=== PATIENT | female | born 1960 | race Caucasian/White ===

== ENCOUNTER 2018-06-16 13:13 | Outpatient (CLI) | payer MEDICARE ==
--- NOTE | 2018-06-16 16:06 | MMO ---
BILATERAL SCREENING MAMMOGRAM: Date: 06/16/18 HISTORY: 58-year-old female. Routine screening mammography. COMPARISON: 05/18/17, 04/15/16. TECHNIQUE: CC and MLO views of both breasts are submitted for interpretation. This patient's mammogram was reviewed with the assistance of computer-aided detection. FINDINGS: The breasts are composed of scattered fibroglandular tissue. Bilaterally, no suspicious dominant mass , architectural distortion, or suspicious calcifications. Bilateral benign-appearing calcifications. Stable biopsy clips in the left breast. IMPRESSION: BIRADS 2: Benign Finding(s) RECOMMENDATION: Annual mammogram. POS: RICHARD
== END 2018-06-16 13:14 | disposition home or self-care (01) ==
LOC: SCSMAMMO 13:13
PROVIDERS: ATTEND Family Medicine
DX: Z12.31 Encounter for screening mammogram for malignant neoplasm of breast (principal)
CPT/HCPCS: 77067

== ENCOUNTER 2018-10-27 08:51 | Outpatient (CLI) | payer MEDICARE ==
--- NOTE | 2018-10-27 10:43 | ULT ---
ULTRASOUND ABDOMEN AORTA: Date: 10/27/18 HISTORY: Abdominal aortic aneurysm screen. Known aortic aneurysm. COMPARISON: None. FINDINGS: Proximal aorta measures 1.9 x 1.8 x 1.6 cm. Mid aorta measures 3.0 x 3.2 x 3.1 cm, abnormally dilated. Distal aorta measures 1.9 x 1.2 x 1.5 cm. IMPRESSION: Aortic aneurysm of the mid abdominal aorta measuring up to 3.2 cm. POS: [facility]
== END 2018-10-27 08:52 | disposition home or self-care (01) ==
LOC: SCSULT 08:51
PROVIDERS: ATTEND Family Medicine
DX: I71.4 Abdominal aortic aneurysm, without rupture (principal)
CPT/HCPCS: 76775

== ENCOUNTER 2018-12-19 12:32 | Outpatient (CLI) | payer MEDICARE ==
--- NOTE | 2018-12-19 12:59 | RAD ---
FXR Elbow Lt 2 View: 12/19/2018 12:00 AM CLINICAL INDICATION: Left elbow pain COMPARISON: None. FINDINGS: Fracture:No fracture. Arthropathy:None of significance. Incidental findings:None of significance. IMPRESSION: 1. No acute osseous abnormality.
--- NOTE | 2018-12-19 13:01 | RAD ---
FXR Lumbar Spine 2 Or 3 View: 12/19/2018 12:00 AM CLINICAL INDICATION: Right lumbar radiculopathy COMPARISON: None. FINDINGS: Fracture:No fracture. Arthropathy:Multilevel mild endplate degenerative changes, and multilevel degenerative facet sclerosi s Incidental findings:Vascular calcification. Metallic clips at right upper abdomen. IMPRESSION: 1. No acute osseous abnormality. 2. Mild degenerative change of lumbar spine.
== END 2018-12-19 12:33 | disposition home or self-care (01) ==
LOC: SCSRAD 12:32
PROVIDERS: ATTEND Family Medicine
DX: M47.26 Other spondylosis with radiculopathy, lumbar region (principal); M25.522 Pain in left elbow
CPT/HCPCS: 72100

== ENCOUNTER 2019-02-27 15:48 | Outpatient (CLI) | payer MEDICARE ==
--- NOTE | 2019-02-27 16:17 | RAD ---
Exam: XR Hip Rt 2-3 View HISTORY: Bilateral hip pain for 3 months. No known injury. COMPARISON: None FINDINGS: Minimal osteoarthritis involves the right hip. No acute fracture, dislocation, or other acute osseous abnormality is identified. Vascular calcifications overlie the expected location of the iliac arteries. IMPRESSION: No acute osseous abnormality is identified.
--- NOTE | 2019-02-27 16:19 | RAD ---
Exam: XR Hip Lt 2-3 View HISTORY: Bilateral hip pain for 3 months. No known injury. COMPARISON: None FINDINGS: Minimal osteoarthritis involves the left hip. No acute fracture, dislocation, or other acute osseous abnormality is identified. IMPRESSION: No acute osseous abnormality is identified.
== END 2019-02-27 15:49 | disposition home or self-care (01) ==
LOC: SCSRAD 15:48
PROVIDERS: ATTEND Family Medicine
DX: M25.551 Pain in right hip (principal); M25.552 Pain in left hip

== ENCOUNTER 2019-10-28 14:07 | Observation (INO) | payer MEDICARE ==
[2019-10-28] MEDS ORDERED: Metoprolol Tartrate 5 MG/5 ML VIAL ONE (14:40)
--- NOTE | 2019-10-28 14:43 | RAD ---
Portable frontal chest radiograph: 10/28/2019 COMPARISON: None HISTORY: Tachycardia FINDINGS: Mild increased linear interstitial density with pulmonary hyperinflation. No pneumothorax o r pleural fluid. No focal consolidation or alveolar edema. IMPRESSION: No acute findings.
[2019-10-28 14:47] LABS: Hemoglobin 14.7 g/dL (12.0-16.0); Mean Corpuscular HGB CONC 34.5 g/dL (32.0-36.0); Mean Corpuscular Hemoglobin 29.8 pg (27.0-31.0); Mean Corpuscular Volume 86.3 fL (78.0-98.0); Mean Platelet Volume 8.5 fL (7.4-10.4); Platelet Count 217 thou/uL (130-400); RBC Distribution Width 13.4 % (11.5-14.5); Red Blood Cell (RBC) Count 4.92 mill/uL (4.20-5.40); White Blood Cell (WBC) Count 10.6 thou/uL (4.8-10.8)
[2019-10-28 15:03] LABS: Lymphocytes 56 % (21-51); MDiff Complete? YES; Monocytes 4 % (0-10); Neutrophil 39 % (42-75); Platelet Morphology Comment Appears Adequate; RBC Morphology Normal
[2019-10-28 15:11] LABS: ALT (SGPT) 65 U/L (8-55); AST (SGOT) 63 U/L (5-34); Albumin 4.2 g/dL (3.5-5.0); Alkaline Phosphatase 100 U/L (40-110); Anion Gap 18 mmol/L (10-20); BUN (Urea Nitrogen) 15 mg/dL (9.8-20.1); Bilirubin, Total 0.3 mg/dL (0.2-1.2); Calc. Creatinine Clearance 0 mL/min (70-130); Calcium 9.6 mg/dL (7.8-10.44); Carbon Dioxide 22 mmol/L (22-29); Chloride 102 mmol/L (98-107); Estimated GFR-MDRD 57; Globulin 3.8 g/dL (2.4-3.5); Glucose 299 mg/dL (70-105); Lipase 25 U/L (8-78); Magnesium 1.5 mg/dL (1.6-2.6); Potassium 4.1 mmol/L (3.5-5.1); Sodium 138 mmol/L (136-145)
[2019-10-28] MEDS ORDERED: Magnesium 2 GM/50 ML BAG (IN WATER) ONE (15:32)
[2019-10-28 17:51] LABS: Troponin I 0.023 ng/mL (< 0.028)
--- NOTE | 2019-10-28 18:19 | PDOC.HHP ---
Hospitalist HPI - History of Present Illness palpitations History of Present Illness: This is a 59 year old female with past medical history of hypertension, Graves disease s/p radioactive ablation with current hypothyroidism who presented with palpitations. The patient states that she was sitting down when she felt a fluttering sensation in her chest around 10:00 am. She looked at her fit-bit and her heart rate was in the 150's. When she walked she noticed that her heart rate was getting faster. The pounding radiated to her neck and she felt that she was going to pass out but she didn't. She states her palpitations didn't resolve until she came to the ER and got IV metoprolol. She denied chest pain, diaphoresis or left arm pain but states that she felt that her lungs were over- filling with air. She denied any flu-like symptoms, nausea, vomiting, constipation or diarrhea. The patient drinks 2-4 cups of caffeine daily . The patient states she was previously on metoprolol with Dr. Kerr but it was discontinued due to the patient having pauses while sleeping. The patient has a history of sleep apnea, but does not wear the CPAP because she doesn't like it. She also had an ECHO done last that showed grade 1 diastolic dysfunction and mild to moderate aortic regurgitation. She also had a stress test done which was unremarkable. The patient states this was done to evaluate intermittent fluttering sensations in her neck that would spontaneously resolve. The patient states when she was on metoprolol previously she continued to have fluttering and she doesn't feel it really helped. Patient states her mother had issues with arrhythmia and had EP evaluation done. ED Course: When she arrived, her BP was 142/95 and heart rate 132. She was noted to have a low magnesium of 1.5. D-dimer was normal. EKG showed sinus tachycardia. Chest X ray showed no acute findings. She received IV magnesium sulfate and lopressor with improvement in her heart rate to 105. Hospitalist ROS - Review of Systems Constitutional: denies: fever, chills Respiratory: denies: cough, dry, shortness of breath Cardiovascular: reports: chest pain, palpitations Hospitalist History - Past Medical History Cardiac: reports: HTN Pulmonary: reports: COPD Endocrine: reports: Diabetes, Hypothyroidism Other Medical History: DOMINIC Abdominal Aortic aneurysm Bipolar type II - Past Surgical History Past Surgical History: reports: Cholecystectomy, Hysterectomy, Tonsillectomy Other Surgical History: Rhinoplasty Hiatal hernia wrap - Family History Other Family History: hypertension and diabetes in mom diabetes sister - Social History Smoking Status: Former smoker (Smoke 1-1.5 packs a day since the age of 16. Quit one year ago) Alcohol: reports: Rare (drinks once a year) Drugs: reports: none Living Situation: With Family (lives with daughter) Occupation: Retired. Former administrative specialist - Exam General Appearance: NAD, awake alert Eye: anicteric sclera ENT: normocephalic atraumatic, no oropharyngeal lesions Neck: supple, no JVD, no thyromegaly Heart: no murmur, no gallops, no rubs Heart - other findings: sinus tachycardia Respiratory: CTAB, no wheezes, no rales, no ronchi Gastrointestinal: soft, non-tender, non-distended Extremities: no cyanosis, no clubbing, no edema Skin: normal turgor, no lesions, no rashes Neurological: cranial nerve grossly intact, normal sensation to touch, no focal deficits, no new deficit Musculoskeletal: normal tone, normal strength, no muscle wasting Psychiatric: normal affect, normal behavior, A&O x 3, oriented to person Hospitalist Results - Labs Result Diagrams: 10/28/19 14:16 10/28/19 14:16 Lab results: WBC 10.6 thou/uL (4.8-10.8) 10/28/19 14:16 Hgb 14.7 g/dL (12.0-16.0) 10/28/19 14:16 Hct 42.5 % (36.0-47.0) 10/28/19 14:16 MCV 86.3 fL (78.0-98.0) 10/28/19 14:16 Plt Count 217 thou/uL (130-400) 10/28/19 14:16 Sodium 138 mmol/L (136-145) 10/28/19 14:16 Potassium 4.1 mmol/L (3.5-5.1) 10/28/19 14:16 Chloride 102 mmol/L (98-107) 10/28/19 14:16 Carbon Dioxide 22 mmol/L (22-29) 10/28/19 14:16 BUN 15 mg/dL (9.8-20.1) 10/28/19 14:16 Creatinine 0.99 mg/dL (0.6-1.1) 10/28/19 14:16 Glucose 299 mg/dL (70-105) H 10/28/19 14:16 Calcium 9.6 mg/dL (7.8-10.44) 10/28/19 14:16 Total Bilirubin 0.3 mg/dL (0.2-1.2) 10/28/19 14:16 AST 63 U/L (5-34) H 10/28/19 14:16 ALT 65 U/L (8-55) H 10/28/19 14:16 Alkaline Phosphatase 100 U/L (40-110) 10/28/19 14:16 Troponin I 0.023 ng/mL (< 0.028) 10/28/19 17:17 Serum Total Protein 8.0 g/dL (6.0-8.3) 10/28/19 14:16 Albumin 4.2 g/dL (3.5-5.0) 10/28/19 14:16 Lipase 25 U/L (8-78) 10/28/19 14:16 - EKG Interpretation EKG: RBBB, poor R wave progression Hospitalist H&P A/P - Plan Plan: Chest X ray: no acute findings EKG: RBBB and right axis deviation, nonspecific St change This is a 59 year old female with past medical history of GERD, bipolar, hypothyroidism, hypertension, diabetes who presented with palpitations Sinus tachycardia - rule out SVT vs ventricular abnormality - could be from underlying arrhythmia vs discontinuation of metoprolol vs DOMINIC vs electrolyte abnormality - troponin first two were negative, third slightly positive. Will repeat in am. - cardiology consulted, will resume metoprolol - TSH unremarkable - s/p 2 grams of magnesium, will recheck tomorrow - may need EP evaluation Hypomagnesemia - given 1.5 mg, s/p2 gram of mag Transaminitis - AST 63, ALT 65 - will trend, no abdominal pain currently DOMINIC - patient to wear CPAP at night Type II diabetes - fingersticks achs. Hold glipizide for now Diet: heart healthy, diabetic Code status: full code
[2019-10-28] MEDS ORDERED: Acetaminophen 325 MG TAB PO PRN (18:52)
[2019-10-28 19:19] VITALS: BMI 23.8
--- NOTE | 2019-10-28 20:40 | CON ---
DATE OF CONSULTATION: 10/28/2019 REASON FOR CONSULTATION: Tachycardia. HISTORY OF PRESENT ILLNESS: Ms. Calix is a pleasant 59-year-old white female who comes to the hospital for tachycardia. She is well known to myself. I saw her in the office just 2 days ago; at which point, we were reviewing her results. She had an echo that was unremarkable, normal EF, grade 1 diastolic dysfunction, and [id number] aortic insufficiency. Her stress test was normal. Her Power EfficiencyO monitor showed no tachyarrhythmias. There were 2 episodes of sinus pauses, longest one was 2.4 seconds and these correlated with episodes of her dozing off to sleep and waking up from feeling of having to take a breath and snoring loudly. We at that point thought that it was put into stop her metoprolol, which was only at 25 mg twice a day, which she had been on for her history of thyroid disease. She had thyrotoxicosis and she has tachycardia. She was placed on metoprolol long time ago and since she has been hypothyroid and is on replacement therapy, and we took her off the beta megan at that time. Her heart rate was 82 in the office. She called today to our call line, and she told me that she suddenly felt palpitations. Her heart rate, she checked it with her Fitbit and it was at 146. When I spoke with her, this should not be the case we just stopping such a low-dose beta-megan, so I asked her to come in for evaluation. In the ER, she was found to have a heart rate of 146. It was unclear whether this was just sinus tach or an SVT. She was given IV adenosine, and she did not really slow down. She did have one episode of slowing down and then she came back up to about 110, and a repeat EKG was done that showed similar findings as the first and possibly sinus tachycardia, cannot rule out an atrial tach. She does have new onset right bundle-branch block. On my evaluation, Mrs. Calix feels well. Denies any chest pain, tightness, or pressure. No shortness of breath. She does not feel tachycardia at all, but her heart rate remains in the 105 to 110 range. PAST MEDICAL HISTORY: 1. Type 2 diabetes. 2. Hyperlipidemia. 3. Hypertension. 4. Hypothyroidism. 5. COPD. 6. Mild cognitive impairment. 7. Graves disease. 8. Anxiety and panic disorder. 9. History of renal failure. PAST SURGICAL HISTORY: 1. Nondisplaced fracture of left toe. 2. AAA repair without rupture. 3. Hysterectomy. FAMILY HISTORY: Mother with diabetes, hypertension, and malignancy. SOCIAL HISTORY: Former smoker. Only drinks coffee and soda. No tobacco. Social alcohol use. No drug use. OUTPATIENT MEDICATIONS: Include: 1. Pantoprazole 40 mg a day. 2. Quetiapine 300 mg daily. 3. Gabapentin 300 mg twice a day. 4. Metoprolol was just stopped 2 days ago. 5. Singulair 10 mg once a day. 6. Donepezil 10 mg once a day. 7. Calcium. 8. Vitamin B12. 9. Multivitamin. 10. Vitamin D3. 11. Vitamin C. 12. Atrovent inhaler. 13. ProAir. 14. Atorvastatin 40 mg a day. 15. BuSpar 10 mg twice a day. 16. Bromide-3. 17. Oxybutynin chloride. 18. Glipizide 10 mg a day. 19. Levothyroxine 175 mcg a day. 20. Januvia 100 mg a day. ALLERGIES: NO KNOWN DRUG ALLERGIES. REVIEW OF SYSTEMS: A 12-point review of systems was done and was all negative unless stated in the History of Present Illness, includes some chest fluttering and snoring. PHYSICAL EXAMINATION: VITAL SIGNS: Temperature 98.5, pulse 105, respiratory rate 20, saturation is 95% on room air, and blood pressure 162/68. GENERAL: Awake, alert, oriented x3, in no distress. HEENT: Normocephalic and atraumatic. NECK: Supple. No JVD. LUNGS: Clear. CARDIOVASCULAR: S1 and S2. No S3 or S4. Tachycardic in the low 100s. There is a grade 2/6 systolic murmur at the right upper sternal border. ABDOMEN: Soft. Positive bowel sounds. EXTREMITIES: No edema. SKIN: Warm and dry. LABORATORY DATA: Laboratory work was reviewed. Electrolytes are normal. Glucose was 299. Magnesium was 1.5. It was replaced in the ER. AST is 63, ALT is 65, which are normal. Troponin was negative x2. Albumin of 4.2. Lipase was normal. TSH was normal at 3.8, but on the high side. IMAGING STUDIES: EKG was reviewed, heart rate 146 with what appears to be sinus tach, cannot rule out atrial tachycardia. Repeat EKG with lower heart rate shows sinus tachycardia at a heart rate of 102. There is QT corrected at 526. Chest x-ray was unremarkable. ASSESSMENT: 1. Tachycardia. 2. Prolonged QT. PLAN: 1. We will plan on restarting the metoprolol now. We will give her first dose now. We will see if this slows her down, maybe this is just her getting a little bit anxious from being off this medication. 2. We will recheck a TSH in the morning with a free T3 and a free T4 to make sure this is not a recurrence of her Graves disease. 3. Continue telemetry monitoring overnight. 4. If she is doing well tomorrow and her heart rate is back down to normal, she may be discharged to home. If she is still in the low one 100s, we may have to keep her until Wednesday to have EP evaluate her. Thank you for letting us to participate in the care of your patient. We will follow. Job ID: [id number]
[2019-10-28 20:49] LABS: Troponin I 0.035 ng/mL (< 0.028)
[2019-10-28] MEDS ORDERED: Atorvastatin Calcium 40 MG TAB PO SCH (21:00)
[2019-10-28] MEDS ORDERED: HumaLOG 300 UNITS/3 ML VIAL SC PRN (21:06)
[2019-10-28] MEDS ORDERED: PROVENTIL INHALER 6.7 G (200 INHALATIONS) INH PRN (21:06)
[2019-10-28] MEDS ORDERED: Dextrose 5% in Water 1,000 ML IV PRN (21:06)
[2019-10-28] MEDS ORDERED: Dextrose 50% Abboject 50 ML SYRINGE SLOW IVP PRN (21:06)
[2019-10-28] MEDS ORDERED: Exenatide Microspheres [Bydureon Pen] 2 MG SC SCH (21:15)
[2019-10-28] MEDS ORDERED: Metoprolol Tartrate 25 MG TAB PO SCH (21:15)
[2019-10-29 04:29] LABS: Hemoglobin 13.8 g/dL (12.0-16.0); Mean Corpuscular HGB CONC 33.8 g/dL (32.0-36.0); Mean Corpuscular Hemoglobin 29.5 pg (27.0-31.0); Mean Corpuscular Volume 87.1 fL (78.0-98.0); Mean Platelet Volume 8.1 fL (7.4-10.4); Platelet Count 207 thou/uL (130-400); RBC Distribution Width 13.4 % (11.5-14.5); Red Blood Cell (RBC) Count 4.67 mill/uL (4.20-5.40); White Blood Cell (WBC) Count 9.7 thou/uL (4.8-10.8)
[2019-10-29 04:57] LABS: ALT (SGPT) 51 U/L (8-55); AST (SGOT) 48 U/L (5-34); Albumin 3.8 g/dL (3.5-5.0); Alkaline Phosphatase 81 U/L (40-110); Anion Gap 13 mmol/L (10-20); BUN (Urea Nitrogen) 14 mg/dL (9.8-20.1); Bilirubin, Total 0.3 mg/dL (0.2-1.2); Calc. Creatinine Clearance 75 mL/min (70-130); Calcium 9.6 mg/dL (7.8-10.44); Carbon Dioxide 27 mmol/L (22-29); Chloride 103 mmol/L (98-107); Estimated GFR-MDRD 64; Globulin 3.3 g/dL (2.4-3.5); Glucose 210 mg/dL (70-105); Potassium 4.6 mmol/L (3.5-5.1); Protein, Total 7.1 g/dL (6.0-8.3); Sodium 138 mmol/L (136-145)
[2019-10-29 05:14] LABS: Free T4 (Free Thyroxine) 0.91 ng/dL (0.70-1.48); Thyroid Stimulating Hormone 3.2689 uIU/mL (0.35-4.94)
[2019-10-29] MEDS ORDERED: Levothyroxine 175 MCG TAB PO SCH (06:00)
[2019-10-29] MEDS: Ipratropium Oral Inhaler INH SCH ×2 (06:23→10:37)
[2019-10-29 08:27] VITALS: BP 106/66; TEMP 98.1
[2019-10-29] MEDS ORDERED: busPIRone HCl 10 MG TAB PO SCH (09:00)
[2019-10-29] MEDS ORDERED: Gabapentin 300 MG CAP PO SCH (09:00)
[2019-10-29] MEDS ORDERED: Donepezil HCl 10 MG TAB PO SCH (09:00)
[2019-10-29] MEDS ORDERED: Ezetimibe 10 MG TAB PO SCH (09:00)
[2019-10-29] MEDS ORDERED: Montelukast Sodium 10 mg Tablet PO SCH (09:00)
[2019-10-29] MEDS ORDERED: Fish Oil 1,000 MG CAP PO SCH (09:00)
[2019-10-29] MEDS ORDERED: Oxybutynin ER 5 MG TAB PO SCH (09:00)
[2019-10-29] MEDS ORDERED: INSULIN DEGLUDEC 120 UNIT SC SCH (21:00)
[2019-10-29] MEDS ORDERED: Insulin Glargine 120 UNITS in Pre-Filled Syringe 1 EACH SC SCH (21:00)
--- NOTE | 2019-10-30 08:45 | DIS ---
DATE OF ADMISSION: 10/28/2019 DATE OF DISCHARGE: 10/29/2019 PRIMARY CARE PROVIDER: Liz Broderick MD DISCHARGE DISPOSITION: To home. FINAL DIAGNOSES: Tachycardia, diabetes mellitus type 2, hypertension, dyslipidemia, and hypothyroidism. DISCHARGE MEDICATIONS: 1. Metoprolol 25 mg p.o. b.i.d. 2. Ditropan XL 10 mg a day. 3. Protonix 40 mg a day. 4. Januvia 100 mg a day. 5. Seroquel 300 mg p.o. at bedtime. 6. BuSpar 10 mg twice a day. 7. Levothyroxine 175 mcg a day. 8. Montelukast 10 mg a day. 9. Gabapentin 300 mg twice a day. 10. Bydureon Pen 2 mg subcu q.7 days. 11. Zetia 10 mg a day. 12. Donepezil 10 mg a day. 13. Lipitor 40 mg a day. 14. Insulin degludec 120 units subcu at bedtime. 15. Albuterol 2 puffs q.4 hours p.r.n. 16. Glipizide 20 mg a day. 17. Atrovent 2 puffs inhaled 4 times a day. 18. [place] 3 acid ethyl esters 2 g b.i.d. ALLERGIES: AMITRIPTYLINE, ATENOLOL, BUPROPION, INVOKANA, NICOTINE. DIET: Diabetic. PENDING AT TIME OF DISCHARGE: Nothing. CODE STATUS: Full. CONSULTATIONS: Dr. Joshua Kerr, Cardiology. PROCEDURES: None. HOSPITAL COURSE: The patient admitted to the Hospitalist Service through [facility] with tachycardia. The patient's initial EKG reveals sinus tach at 140. Her laboratory and CBC unremarkable except for neutrophils 39, lymphocytes 56. D-dimer 0.42. Comprehensive metabolic profile, blood sugar 299, magnesium 1.5. She received IV magnesium. She did have some minor elevations of AST and ALT 63 and 65. Cardiac enzymes; troponin 0.018, 0.023, and 0.035. The patient was given a low dose of metoprolol. Her rhythm returned to sinus 80+/-, free T4 was normal, free T3 was normal. TSH was normal. She is being discharged for followup by her PCP in [address] Kerr's recommendations with himself. Vital signs stable. Cardiovascular exam unremarkable except for a mild systolic murmur. Job ID: [id number]
== END 2019-10-29 11:48 | disposition home or self-care (01) ==
LOC: ERS 14:07 → 2SW 17:14
PROVIDERS: ADMIT Internal Medicine; ATTEND Internal Medicine
DX: R00.0 Tachycardia, unspecified (principal); E11.9 Type 2 diabetes mellitus without complications; I10 Essential (primary) hypertension; E78.5 Hyperlipidemia, unspecified; E03.9 Hypothyroidism, unspecified; I45.81 Long QT syndrome; J44.9 Chronic obstructive pulmonary disease, unspecified; G47.33 Obstructive sleep apnea (adult) (pediatric); E83.42 Hypomagnesemia; G31.84 Mild cognitive impairment of uncertain or unknown etiology; R74.0 Nonspecific elevation of levels of transaminase and lactic acid dehydrogenase [LDH]; F31.81 Bipolar II disorder; F41.0 Panic disorder [episodic paroxysmal anxiety]; Z79.4 Long term (current) use of insulin; Z79.899 Other long term (current) drug therapy; Z87.891 Personal history of nicotine dependence; Z88.8 Allergy status to other drugs, medicaments and biological substances; Z90.49 Acquired absence of other specified parts of digestive tract
CPT/HCPCS: 36415; 36416; 71045; 80053; 83690; 83735; 84439; 84443; 84481; 84484; 85025; 85027; 85379; 93005; 94664; 96365; 96375; G0378; J3475

== ENCOUNTER 2019-11-14 19:30 | Outpatient (CLI) | payer MEDICARE | END 2019-11-14 19:31 | disposition home or self-care (01) | LOC: SLEEPLAB 19:30 | PROVIDERS: ATTEND Family Medicine | DX: G47.33 Obstructive sleep apnea (adult) (pediatric) (principal); K21.9 Gastro-esophageal reflux disease without esophagitis; J44.9 Chronic obstructive pulmonary disease, unspecified; I10 Essential (primary) hypertension; E11.9 Type 2 diabetes mellitus without complications | CPT/HCPCS: 95811 ==

== ENCOUNTER 2019-11-24 06:12 | Day surgery (SDC) | payer MEDICARE ==
[2019-11-23 10:31] VITALS: BMI 23.7
[2019-11-24] MEDS ORDERED: Lidocaine 1% PF 5 ML VIAL ONE (09:41)
[2019-11-24] MEDS ORDERED: PROPOFOL 200 MG/20 ML VIAL ONE (09:41)
--- NOTE | 2019-11-24 09:43 | OP ---
DATE OF PROCEDURE: 11/24/2019 FLEET OPERATIONS MANAGER SURGEON: None. PROCEDURE PERFORMED: Surveillance colonoscopy with snare polypectomy. INDICATION: 1. Personal history of colon polyps. 2. Family history of colon cancer (paternal grandmother). MEDICATIONS: See Anesthesia record. FINDINGS: After discussion of the risks, benefits, and alternatives of the procedure, informed consent was obtained and witnessed. Pre-endoscopic cardiopulmonary examination was satisfactory. Time-out was performed before sedation was achieved. Sedation was achieved with Anesthesia assistance in the endoscopy unit. A digital rectal exam was performed, which was unremarkable. A Pentax adult colonoscope was inserted into the anus and passed forward to the cecum in the usual fashion. The cecal base was identified by the appendiceal orifice as well as the ileocecal valve. The terminal ileum was intubated and the ileal mucosa appeared normal. The colonoscope was slowly withdrawn in a gradual and circumferential manner with careful examination of the entire colonic mucosa. The quality of the prep was good. In the ascending colon, there was a sessile polyp measuring about 5 mm in diameter. This was completely removed with cold snare and retrieved for pathology. In the rectum, there were 2 polyps, both measuring 3 to 4 mm in diameter. These were both completely removed with cold snare and retrieved for pathology. Retroflexion in the rectum was unremarkable. The colonoscope was completely withdrawn and the patient allowed to recover. The patient tolerated the procedure well. There were no immediate postprocedure complications. IMPRESSION: 1. Single 5-mm sessile polyp in the ascending colon, completely removed with cold snare and retrieved for pathology. 2. Two sessile rectal polyps, both measuring about 3 mm, both completely removed with cold snare and retrieved for pathology. 3. Tortuous colon. 4. Otherwise normal colonoscopy to the terminal ileum. RECOMMENDATIONS: 1. Follow up pathology results on the polyps. 2. Repeat colonoscopy interval to be determined based on pathology results. Job ID: [id number]
== END 2019-11-24 09:55 | disposition home or self-care (01) ==
LOC: SDC 06:12
PROVIDERS: ATTEND Internal Medicine
PROC: 0DBM8ZZ Excision of Descending Colon, Via Natural or Artificial Opening Endoscopic (ICD-10-PCS; principal; 2019-11-24)
PROC: 0DBP8ZZ Excision of Rectum, Via Natural or Artificial Opening Endoscopic (ICD-10-PCS; 2019-11-24)
DX: Z12.11 Encounter for screening for malignant neoplasm of colon (principal); D12.8 Benign neoplasm of rectum; K63.5 Polyp of colon; K63.89 Other specified diseases of intestine; F41.9 Anxiety disorder, unspecified; F31.9 Bipolar disorder, unspecified; J44.9 Chronic obstructive pulmonary disease, unspecified; K76.0 Fatty (change of) liver, not elsewhere classified; K21.9 Gastro-esophageal reflux disease without esophagitis; K44.9 Diaphragmatic hernia without obstruction or gangrene; E78.5 Hyperlipidemia, unspecified; E03.9 Hypothyroidism, unspecified; G47.30 Sleep apnea, unspecified; E11.9 Type 2 diabetes mellitus without complications; Z90.710 Acquired absence of both cervix and uterus; Z98.890 Other specified postprocedural states; Z79.899 Other long term (current) drug therapy; F17.200 Nicotine dependence, unspecified, uncomplicated; Z86.010 Personal history of colon polyps; Z80.0 Family history of malignant neoplasm of digestive organs; Z83.71 Family history of colonic polyps; Z79.84 Long term (current) use of oral hypoglycemic drugs; Z88.8 Allergy status to other drugs, medicaments and biological substances; Z90.89 Acquired absence of other organs; Z85.3 Personal history of malignant neoplasm of breast; Z90.49 Acquired absence of other specified parts of digestive tract
CPT/HCPCS: 36416; 88305; J2001; J2704

== ENCOUNTER 2020-08-07 09:47 | Outpatient (CLI) | payer MEDICARE ==
--- NOTE | 2020-08-07 10:28 | CT ---
EXAM: CT Pulmonary Lung Scan PROVIDED CLINICAL HISTORY: Personal history of nicotine dependence, lung screening COMPARISON: None FINDINGS: The heart, pericardium and great vessels are suboptimally evaluated in the absence of IV contrast mat erial. Trace pericardial fluid. Minimal vascular calcification, including coronary calcium. Prominent by number but not pathologically enlarged mediastinal lymph nodes. The airway appears patent and of normal caliber. Pleural-parenchymal scarring changes are seen at both lung apices. No concerning pulmonary nodule is evident. No pleural fluid or pneumothorax apparent. The visualized portions of the upper abdomen demonstrate no significant abnormality. The osseous structures demonstrate no concerning lytic or blastic lesions. IMPRESSION: 1. Lung RADS category 1-negative. Continue annual screening. 2. Vascular calcification including coronary calcium.
== END 2020-08-07 09:48 | disposition home or self-care (01) ==
LOC: BICCT 09:47
PROVIDERS: ATTEND Family Medicine
DX: Z12.2 Encounter for screening for malignant neoplasm of respiratory organs (principal); Z87.891 Personal history of nicotine dependence; I25.10 Atherosclerotic heart disease of native coronary artery without angina pectoris
CPT/HCPCS: G0297

== ENCOUNTER 2021-02-19 07:37 | Outpatient (CLI) | payer MEDICARE | END 2021-02-19 07:38 | disposition home or self-care (01) | LOC: SCSMRI 07:37 | PROVIDERS: ATTEND Orthopaedic Surgery | DX: M48.062 Spinal stenosis, lumbar region with neurogenic claudication (principal); M51.26 Other intervertebral disc displacement, lumbar region; M51.27 Other intervertebral disc displacement, lumbosacral region | CPT/HCPCS: 72148 ==

== ENCOUNTER 2022-02-05 09:37 | Outpatient (CLI) | payer MEDICARE | END 2022-02-05 09:38 | disposition home or self-care (01) | LOC: ULT 09:37 | PROVIDERS: ATTEND Family Medicine | DX: I71.4 Abdominal aortic aneurysm, without rupture (principal) | CPT/HCPCS: 76706 ==

== ENCOUNTER 2024-03-15 09:37 | Outpatient (CLI) | payer MEDICARE | END 2024-03-15 09:38 | disposition home or self-care (01) | LOC: BICRAD 09:37 | PROVIDERS: ATTEND Family Medicine | DX: M25.531 Pain in right wrist (principal); M79.641 Pain in right hand ==

== ENCOUNTER 2025-05-18 08:08 | Outpatient (CLI) | payer MEDICARE ==
[2025-05-18 10:07] LABS: #Basophils 0.08 10x3/uL (0.0-0.2); #Eosinophils 0.12 10x3/uL (0.0-0.7); #Monocytes 0.67 10x3/uL (0.11-0.59); #Neutrophils 3.48 10x3/uL (1.40-6.50); %Basophils 1.1 % (0.0-1.0); %Eosinophils 1.7 % (0.0-10.0); %Lymphocytes 39.0 % (21.0-51.0); %Monocytes 9.4 % (0.0-10.0); %Neutrophils 48.7 % (42.0-75.0); Hematocrit 44.8 % (36.0-47.0); Hemoglobin 14.2 g/dL (12.0-16.0); Mean Corpuscular Hemoglobin 30.1 pg (27.0-31.0); Mean Corpuscular Volume 95.1 fL (78.0-98.0); Platelet Count 156 10x3/uL (130-400); Red Blood Cell (RBC) Count 4.71 mill/uL (4.20-5.40); White Blood Cell (WBC) Count 7.15 10x3/uL (4.8-10.8)
== END 2025-05-18 08:09 | disposition home or self-care (01) ==
LOC: LABBT 08:08
PROVIDERS: ATTEND Orthopaedic Surgery
DX: Z01.818 Encounter for other preprocedural examination (principal); G56.01 Carpal tunnel syndrome, right upper limb
CPT/HCPCS: 85025; 93005; 93010

== ENCOUNTER 2025-05-21 05:56 | Day surgery (SDC) | payer MEDICARE ==
[2025-05-21] MEDS ORDERED: PROPOFOL 20 ML ONE (07:17)
[2025-05-21] MEDS ORDERED: Lidocaine 1% PF 5 ML VIAL ONE (07:17)
[2025-05-21] MEDS ORDERED: fentaNYL PF 100 MCG/2 ML SYRINGE ONE (07:17)
[2025-05-21] MEDS ORDERED: Ondansetron PF 4 MG/2 ML Vial ONE (07:17)
[2025-05-21] MEDS ORDERED: CEFAZOLIN 2 GM VIAL ONE (07:37)
[2025-05-21] MEDS ORDERED: PHENYLEPHRINE-NS 100 MCG/ML 10 ML SYRINGE ONE (08:00)
== END 2025-05-21 10:45 | disposition home or self-care (01) ==
LOC: SDC 05:56
PROVIDERS: ATTEND Orthopaedic Surgery
PROC: 01N54ZZ Release Median Nerve, Percutaneous Endoscopic Approach (ICD-10-PCS; principal; 2025-05-21)
DX: G56.03 Carpal tunnel syndrome, bilateral upper limbs (principal); M18.0 Bilateral primary osteoarthritis of first carpometacarpal joints; M65.931 Unspecified synovitis and tenosynovitis, right forearm; I10 Essential (primary) hypertension; E11.9 Type 2 diabetes mellitus without complications; E03.9 Hypothyroidism, unspecified; E78.2 Mixed hyperlipidemia; Z87.891 Personal history of nicotine dependence; Z90.710 Acquired absence of both cervix and uterus; Z90.49 Acquired absence of other specified parts of digestive tract; Z90.89 Acquired absence of other organs; Z88.8 Allergy status to other drugs, medicaments and biological substances; Z79.890 Hormone replacement therapy; Z79.84 Long term (current) use of oral hypoglycemic drugs; Z79.85 Long-term (current) use of injectable non-insulin antidiabetic drugs; Z79.4 Long term (current) use of insulin; Z79.82 Long term (current) use of aspirin; Z79.899 Other long term (current) drug therapy
CPT/HCPCS: 29848; 82962; J0665; J1100; J2405; J2704; 36416; A6223